=== PATIENT | female | born 1995 | race African-American/Black ===

== ENCOUNTER 2016-09-01 09:54 | Emergency (ER) | payer MEDICAID ==
[2016-09-01] MEDS ORDERED: SODIUM CHLORIDE 0.9% 1,000 ML IV ONE (10:29)
[2016-09-01] MEDS ORDERED: ACETAMINOPHEN 325MG TABLET PO STA (10:29)
[2016-09-01 11:16] LABS: BASOPHILS % 0.5 % (0.0-2.0); EOSINOPHILS % 0.6 % (0.0-5.0); HEMATOCRIT. 33.5 % (36.0-48.0); HEMOGLOBIN. 10.9 g/dL (12.0-16.0); LYMPHOCYTES % 24.5 % (20.0-50.0); MEAN CORPUSCULAR HEMOGLOBIN 27.7 pg (28.0-32.0); MEAN CORPUSCULAR VOLUME 85.4 fL (81.0-99.0); MEAN PLATELET VOLUME 6.8 fl (7.4-10.4); MONOCYTES % 5.1 % (2.0-8.0); NEUTROPHILS % 69.3 % (40.0-76.0); PLATELET 252 x1000/uL (130-400); RED BLOOD CELL COUNT 3.93 mill/uL (4.2-5.4); RED CELL DISTRIBUTION WIDTH 15.9 % (11.6-14.6)
[2016-09-01 11:18] LABS: CLARITY URINE CLOUDY (CLEAR); COLOR URINE YELLOW (YELLOW); GLUCOSE URINE NEGATIVE (NEGATIVE); KETONES URINE NEGATIVE (NEGATIVE); LEUKOCYTE ESTERASE URINE 1+ (NEGATIVE); NITRITE URINE NEGATIVE (NEGATIVE); OCCULT BLOOD URINE NEGATIVE (NEGATIVE); PH URINE 7.5 (4.5-8.0); PROTEIN URINE NEGATIVE (NEGATIVE); SPECIFIC GRAVITY URINE 1.017 (1.005-1.030); UROBILINOGEN URINE 0.2 E.U./dL (0.2-1.0)
[2016-09-01 11:22] LABS: INR 1.1; PROTHROMBIN TIME 11.4 sec
[2016-09-01 11:23] LABS: CHLORIDE 106 mEq/L (98-107); HCG SCREEN NEGATIVE
[2016-09-01 11:30] LABS: CARBON DIOXIDE 26 mEq/L (21-32)
[2016-09-01 12:11] VITALS: BP 104/69
== END 2016-09-01 12:22 | disposition home or self-care (01) ==
LOC: ER 09:59
DX: N39.0 Urinary tract infection, site not specified (principal); F20.9 Schizophrenia, unspecified; F32.9 Major depressive disorder, single episode, unspecified; F31.9 Bipolar disorder, unspecified; F12.10 Cannabis abuse, uncomplicated
CPT/HCPCS: 36415; 80053; 81001; 83690; 84703; 85025; 85610; 96360; 99284; J7030

== ENCOUNTER 2018-12-30 06:23 | Emergency (ER) | payer OTHER ==
[~2018-12-30] VITALS: Ht 165.1 cm; Wt 55.0 kg
[2018-12-30] MEDS ORDERED: SODIUM CHLORIDE 0.9% 1,000 ML IV ONE (07:30)
[2018-12-30] MEDS ORDERED: KETOROLAC 30MG/ML VIAL IV ONE (07:30)
[2018-12-30] MEDS ORDERED: DIPHENHYDRAMINE 50MG/ML VIAL IV ONE (07:30)
[2018-12-30] MEDS ORDERED: METOCLOPRAMIDE HCL 10MG/2ML VIAL IV ONE ×2 (07:30→08:30)
[2018-12-30 09:31] VITALS: BP 99/66
== END 2018-12-30 09:51 | disposition home or self-care (01) ==
LOC: ER 06:23
DX: K08.89 Other specified disorders of teeth and supporting structures (principal); R51 Headache; F17.200 Nicotine dependence, unspecified, uncomplicated; F12.10 Cannabis abuse, uncomplicated; F31.9 Bipolar disorder, unspecified; F20.9 Schizophrenia, unspecified
CPT/HCPCS: 96374; 96375; 96376; 99283; J1200; J1885; J2765; J7030

== ENCOUNTER 2019-01-08 02:29 | Emergency (ER) | payer OTHER ==
[~2019-01-08] VITALS: Ht 165.1 cm; Wt 55.0 kg
[2019-01-08] MEDS ORDERED: KETOROLAC 60MG/2ML VIAL IM STA (04:03)
[2019-01-08 05:00] VITALS: BP 94/37
== END 2019-01-08 05:02 | disposition home or self-care (01) ==
LOC: ER 02:59
DX: K02.9 Dental caries, unspecified (principal); K08.89 Other specified disorders of teeth and supporting structures
CPT/HCPCS: 81025; 96372; 99283; J1885

== ENCOUNTER 2019-01-18 23:17 | Emergency (ER) | payer OTHER ==
[~2019-01-18] VITALS: Ht 165.1 cm; Wt 56.0 kg
[2019-01-19] MEDS ORDERED: KETOROLAC 30MG/ML VIAL IV STA (01:05)
[2019-01-19] MEDS ORDERED: SODIUM CHLORIDE 0.9% 1,000 ML IV ONE (01:05)
[2019-01-19 01:30] VITALS: BP 104/64
[2019-01-19] MEDS ORDERED: MORPHINE SULFATE 2 MG/ML CPJ (NOT FOR IM USE) IV ONE (01:30)
[2019-01-19] MEDS ORDERED: ONDANSETRON HCL 4MG/2ML INJ IV ONE (01:30)
== END 2019-01-19 03:02 | disposition left against medical advice (07) ==
LOC: ER 23:17
DX: K04.7 Periapical abscess without sinus (principal); R51 Headache; F17.200 Nicotine dependence, unspecified, uncomplicated; F12.10 Cannabis abuse, uncomplicated
CPT/HCPCS: 96374; 96375; 99283; J2270; J2405; J7030; Z7610; J1885

== ENCOUNTER 2019-03-08 10:53 | Emergency (ER) | payer OTHER ==
[~2019-03-08] VITALS: Ht 170.2 cm; Wt 66.0 kg
[2019-03-08] MEDS ORDERED: KETOROLAC 30MG/ML VIAL IV STA (11:41)
[2019-03-08] MEDS ORDERED: ACETAMINOPHEN 325MG TABLET PO STA (11:41)
[2019-03-08] MEDS ORDERED: SODIUM CHLORIDE 0.9% 1,000 ML IV ONE (11:41)
[2019-03-08] MEDS ORDERED: METOCLOPRAMIDE HCL 10MG/2ML VIAL IV ONE (11:45)
[2019-03-08 12:26] LABS: BASOPHILS % 0.4 % (0.0-2.0); HEMOGLOBIN. 10.9 g/dL (12.0-16.0); LYMPHOCYTES % 17.4 % (20.0-50.0); MEAN CORPUSCULAR HEMOGLOBIN 27.3 pg (28.0-32.0); MEAN CORPUSCULAR VOLUME 82.6 fL (81.0-99.0); MONOCYTES % 3.5 % (2.0-8.0); NEUTROPHILS % 78.7 % (40.0-76.0); PLATELET 309 x1000/uL (130-400); RED CELL DISTRIBUTION WIDTH 17.9 % (11.6-14.6)
[2019-03-08 12:30] LABS: CHLORIDE 109 mEq/L (98-107)
[2019-03-08 12:43] LABS: UCG SCREEN NEGATIVE
[2019-03-08 14:21] VITALS: BP 98/56
== END 2019-03-08 14:31 | disposition home or self-care (01) ==
LOC: ER 10:53
DX: R10.84 Generalized abdominal pain (principal); R51 Headache; I10 Essential (primary) hypertension; F12.10 Cannabis abuse, uncomplicated
CPT/HCPCS: 36415; 80053; 81025; 83690; 85025; 93005; 96374; 96375; J1885; J2765; J7030; Z7610

== ENCOUNTER 2023-08-16 10:48 | Emergency (ER) | payer OTHER ==
[~2023-08-16] VITALS: Ht 165.1 cm; Wt 54.0 kg
[2023-08-16 10:55] VITALS: BP 148/62; PULSE 100; RESP 16; TEMP 98.1; O2SAT 100
[2023-08-16] MEDS ORDERED: KETOROLAC 30MG/ML VIAL IV STA (10:56)
[2023-08-16] MEDS ORDERED: ONDANSETRON HCL 4MG/2ML INJ IV STA (10:56)
[2023-08-16] MEDS ORDERED: FAMOTIDINE 20MG/2ML VIAL IV STA (10:56)
[2023-08-16] MEDS ORDERED: SODIUM CHLORIDE 0.9% 1,000 ML IV ONE (11:00)
[2023-08-16 11:21] LABS: BASOPHILS % 0.3 % (0.0-2.0); DIFFERENTIAL COMMENT 0; EOSINOPHILS % 0.1 % (0.0-5.0); HEMATOCRIT. 31.7 % (36.0-48.0); HEMOGLOBIN. 10.1 g/dL (12.0-16.0); LYMPHOCYTES % 15.2 % (20.0-50.0); MEAN CORPUSCULAR HGB CONC 31.8 g/dL (31.0-37.0); MEAN CORPUSCULAR VOLUME 75.6 fL (81.0-99.0); MEAN PLATELET VOLUME 6.7 fl (7.4-10.4); MONOCYTES % 2.8 % (2.0-8.0); NEUTROPHILS % 81.6 % (40.0-76.0); PLATELET 340 x1000/uL (130-400); RED CELL DISTRIBUTION WIDTH 21.8 % (11.6-14.6); WHITE BLOOD COUNT 5.8 x1000/uL (4.5-11.0)
[2023-08-16 11:27] LABS: CHLORIDE 106 mEq/L (98-107); POTASSIUM 3.5 mEq/L (3.5-5.1); SODIUM 139 mEq/L (136-145)
[2023-08-16 11:28] LABS: CALCIUM 9.7 mg/dL (8.7-10.4); CARBON DIOXIDE 22 mEq/L (21-32)
[2023-08-16 11:31] LABS: HCG SCREEN NEGATIVE
[2023-08-16 11:32] LABS: PROTHROMBIN TIME 11.1 sec (9.6-11.0)
[2023-08-16 11:33] LABS: CREATININE 0.7 mg/dL (0.6-1.0); GLUCOSE 92 mg/dL (70-105); UREA NITROGEN BLOOD 8 mg/dL (9-23)
[2023-08-16 11:35] LABS: ALANINE AMINOTRANSFERASE 12 IU/L (10-49); ALBUMIN 4.7 g/dL (3.2-4.8); ASPARTATE AMINOTRANSFERASE 23 IU/L (<34); BILIRUBIN DIRECT 0.2 mg/dL (<=3.0); BILIRUBIN TOTAL 0.5 mg/dL (0.1-1.0); PROTEIN TOTAL 7.7 g/dL (6.0-8.3)
== END 2023-08-16 15:54 | disposition left against medical advice (07) ==
LOC: ER 10:48 → EDBEDREQ 12:57 → CANBEDREQ 14:16 → ER 15:54
DX: R10.9 Unspecified abdominal pain (principal); D64.9 Anemia, unspecified; I10 Essential (primary) hypertension; F12.90 Cannabis use, unspecified, uncomplicated
CPT/HCPCS: 80076; 80048; 84703; 83690; 85025; 85610; 36415; 99283; J7030; Z7610 ×3